=== PATIENT | female | born 1945 | race Caucasian/White ===

== ENCOUNTER 2017-12-16 06:15 | Inpatient (IN) | payer MEDICARE, MEDICAID ==
[2017-12-10 14:03] LABS: BASOPHILS # (AUTO) 0.1 X10'3 (0-0.2); BASOPHILS % (AUTO) 0.7 % (0-1); EOSINOPHILS # (AUTO) 0.2 X10'3 (0-0.9); EOSINOPHILS % (AUTO) 2.6 % (0-6); LYMPHOCYTES # (AUTO) 2.8 X10'3 (1.1-4.8); LYMPHOCYTES % (AUTO) 32.2 % (21-51); MEAN CORPUSCULAR HGB CONC 34.3 % (33.0-36.5); MEAN CORPUSCULAR VOLUME 87.7 FL (78-98); MEAN PLATELET VOLUME 7.5 FL (7.4-10.4); MONOCYTES # (AUTO) 0.4 X10'3 (0-0.9); NEUTROPHILS # (AUTO) 5.3 X10'3 (1.8-7.7); NEUTROPHILS % (AUTO) 59.5 % (42-75); PRE OP HEMATOCRIT 42.5 % (35.0-45.0); PRE OP HEMOGLOBIN 14.6 g/dL (12.0-16.0); PRE OP PLATELET COUNT 242 X10'3 (140-440); RED BLOOD COUNT 4.85 X10'6 (4.20-5.60); RED CELL DISTRIBUTION WIDTH 13.7 % (11.5-14.5)
[2017-12-10 14:17] LABS: CLARITY,URINE Cloudy (Clear); COLOR,URINE Yellow (Yellow); GLUCOSE, URINE Negative (Neg); KETONES,URINE Negative (Neg); LEUKOCYTE ESTERASE ,URINE Large (Neg); NITRITES, URINE Negative (Neg); OCCULT BLOOD,URINE Negative (Neg); PH,URINE 6.5 (4.8-8.0); PROTEIN,URINE Negative (Neg)
[2017-12-10 14:19] LABS: UA COLLECTION TYPE CLN CATCH MIDSTREAM
[2017-12-10 14:19] LABS: ALBUMIN 3.8 G/DL (3.4-5.0); ALKALINE PHOSPHATASE 80 IU/L (46-116); BLOOD UREA NITROGEN 10 MG/DL (7-18); BUN/CREATININE RATIO 9.2 (6.6-38.0); CALCIUM 9.5 MG/DL (8.5-10.1); CHLORIDE 108 MMOL/L (99-107); CREATININE 1.09 MG/DL (0.40-0.90); PRE OP ALT 22 U/L (30-65); PRE OP ANION GAP 8 (8-16); PRE OP AST 18 U/L (10-37); PRE OP BILIRUB, TOTAL 0.6 MG/DL (0.0-1.0); PRE OP GLUCOSE 93 MG/DL (70-104); PRE OP POTASSIUM 4.1 MMOL/L (3.4-5.1); PRE OP SODIUM 144 MMOL/L (135-145); TOTAL CARBON DIOXIDE 27.7 MMOL/L (24-32); TOTAL PROTEIN 7.8 G/DL (6.4-8.2); eGFR 49 ML/MIN
[2017-12-10 14:33] LABS: HEMOGLOBIN A1C 5.9 % (4.5-6.2)
[2017-12-10 15:08] LABS: SQUAMOUS EPITHELIAL CELL,UR FEW /LPF (FEW)
[2017-12-10 15:09] LABS: BACTERIA,URINE 3+ /HPF (Neg); RBC,URINE 0-2 /HPF (0-2); WBC CLUMPS,URINE MODERATE /HPF (NEGATIVE); WBC,URINE 20-30 /HPF (0-4)
[~2017-12-16] VITALS: Ht 165.1 cm; Wt 105.4 kg
[2017-12-16] VITALS (22 sets, daily range): BP systolic 90–160; BP diastolic 16–99
[~2017-12-16 06:15] MED LIST: CALC1TAB77 PO; GABA-532 PO; IBUP-1985 PO; LIDOcaine 1% (10mg/ml) 2ml vial ONE; OMEP-50 PO; acetaminophen 325mg tablet PO ONE; ceFAZolin 2gm in dextrose, iso 100 ML IV ONE; famotidine 20mg tablet PO ONE; gabapentin 300mg capsule PO ONE; metoclopramide 5 mg/ml inj IV ONE; oxyCODONE SR 10mg (sust. release) tab PO ONE; ringers solution, lacted 1,000 ML IV SCH; tranexamic acid inj. 1,000 MG in normal saline 100ml IV soln 90 ML IV ONE; vancomycin inj 1,500 MG in normal saline 300ml IV soln IV ONE
[2017-12-16] MEDS ORDERED: ketorolac trometh. 30mg/ml inj. ONE (07:40)
[2017-12-16] MEDS ORDERED: vancomycin 1,000mg inj ONE (07:41)
[2017-12-16] MEDS ORDERED: ROPIVAcaine 0.5% (5mg/ml) 30ml vial ONE ×2 (07:41→08:16)
[2017-12-16] MEDS ORDERED: ceFAZolin 1000mg inj ONE (07:41)
[2017-12-16] MEDS ORDERED: morphine /PF 1mg/ml 10ml inj. ONE (08:00)
[2017-12-16] MEDS ORDERED: sevoflurane 250ml liquid IH ONE (08:10)
[2017-12-16] MEDS ORDERED: cloNIDine hcl/PF 100mcg/ml inj ONE (08:11)
[2017-12-16] MEDS ORDERED: fentaNYL /PF 50mcg/ml 5ml ampule ONE (08:13)
[2017-12-16] MEDS ORDERED: MIDAZolam 5mg/5ml vial ONE (08:13)
[2017-12-16] MEDS ORDERED: ringers solution, lacted 1,000 ML IV SCH (09:26)
[2017-12-16] MEDS ORDERED: proCHLORperazine 10 MG/2 ml inj IV PRN (09:30)
[2017-12-16] MEDS ORDERED: meperidine/PF 50mg/ml syringe IV PRN ×3 (09:30)
[2017-12-16] MEDS ORDERED: morphine 4 MG/ML inj SYRINge IV PRN ×2 (09:30)
[2017-12-16] MEDS ORDERED: ondansetron/PF 4mg/2ml inj IV PRN ×2 (09:30→12:10)
[2017-12-16] MEDS ORDERED: magnesium hydroxide 30ml (MOM) UD suspension PO PRN (12:10)
[2017-12-16] MEDS ORDERED: bisacodyl 10mg suppository rectal RC PRN (12:10)
[2017-12-16] MEDS ORDERED: acetaminophen 325mg tablet PO PRN (12:10)
[2017-12-16] MEDS ORDERED: diphenhydrAMINE 25mg capsule PO PRN ×2 (12:10)
[2017-12-16] MEDS: acetaminophen 325mg tablet PO SCH ×2 (14:00→20:12)
[2017-12-16] MEDS: oxyCODONE IR 5mg (immed. release) tablet PO PRN (14:56)
[2017-12-16] MEDS: gabapentin 300mg capsule PO SCH ×2 (14:56→20:12)
[2017-12-16] MEDS: potassium cl 20mEq in 1/2 NS 1,000 ML IV SCH (14:58)
[2017-12-16] MEDS ORDERED: tranexamic acid inj. 1,000 MG in normal saline 100ml IV soln 100 ML IV ONE (15:00)
[2017-12-16] MEDS: ceFAZolin 1GM/D5W- ADD-VANTAGE 50 ML IV SCH (15:56)
[2017-12-16] MEDS ORDERED: vancomycin/NS 1 GM ADD-VANTAGE 250 ML IV SCH (20:00)
[2017-12-16] MEDS: sennosides 8.6mg tablet PO SCH (20:11)
[2017-12-16] MEDS: celeCOXIB 100mg capsule PO SCH (20:11)
[2017-12-17] MEDS: potassium cl 20mEq in 1/2 NS 1,000 ML IV SCH ×4 (01:22→19:36)
[2017-12-17] MEDS: ceFAZolin 1GM/D5W- ADD-VANTAGE 50 ML IV SCH (01:41)
[2017-12-17 02:00] VITALS: BP 112/49
[2017-12-17] MEDS: acetaminophen 325mg tablet PO SCH ×4 (02:00→19:56)
[2017-12-17] MEDS: oxyCODONE IR 5mg (immed. release) tablet PO PRN ×4 (05:16→19:58)
[2017-12-17 05:55] LABS: BASOPHILS % (AUTO) 0.3 % (0-1); EOSINOPHILS # (AUTO) 0.1 X10'3 (0-0.9); EOSINOPHILS % (AUTO) 1.4 % (0-6); HEMATOCRIT 32.1 % (35.0-45.0); HEMOGLOBIN 10.9 g/dl (12.0-16.0); LYMPHOCYTES # (AUTO) 1.8 X10'3 (1.1-4.8); LYMPHOCYTES % (AUTO) 19.3 % (21-51); MEAN CORPUSCULAR HEMOGLOBIN 29.8 PG (27.0-31.0); MEAN CORPUSCULAR HGB CONC 33.9 % (33.0-36.5); MEAN CORPUSCULAR VOLUME 87.8 FL (78-98); MEAN PLATELET VOLUME 7.7 FL (7.4-10.4); MONOCYTES # (AUTO) 0.6 X10'3 (0-0.9); NEUTROPHILS # (AUTO) 6.6 X10'3 (1.8-7.7); PLATELET COUNT 186 X10'3 (140-440); RED BLOOD COUNT 3.65 X10'6 (4.20-5.60); WHITE BLOOD COUNT 9.1 X10'3 (4.5-11.0)
[2017-12-17 06:16] LABS: ANION GAP 8 (8-16); CHLORIDE 105 MMOL/L (99-107); POTASSIUM 4.3 MMOL/L (3.5-5.1); SODIUM 138 MMOL/L (135-145); TOTAL CARBON DIOXIDE 24.9 MMOL/L (24-32)
[2017-12-17 06:41] VITALS: BP 118/60
[2017-12-17] MEDS: enoxaparin 40mg/0.4ml syringe SQ SCH (07:43)
[2017-12-17] MEDS: celeCOXIB 100mg capsule PO SCH ×2 (07:44→19:55)
[2017-12-17] MEDS: calcium carbonate/vitamin D3 tablet PO SCH ×2 (07:46→16:58)
[2017-12-17] MEDS: pantoprazole 40mg Tablet.DR PO SCH (07:46)
[2017-12-17 10:38] VITALS: BP 94/51
[2017-12-17 18:00] VITALS: BP 115/46
[2017-12-17] MEDS ORDERED: NUT.TX.GLUC.INTOLER,LAC-FR,REG (BOOST GLUCOSE CONTROL) 237 ML PO SCH (18:00)
[2017-12-17] MEDS: gabapentin 300mg capsule PO SCH (20:08)
[2017-12-17] MEDS: sennosides 8.6mg tablet PO SCH (20:09)
[2017-12-17 22:00] VITALS: BP 167/77
[2017-12-18] MEDS: oxyCODONE IR 5mg (immed. release) tablet PO PRN ×5 (01:22→23:39)
[2017-12-18] MEDS: acetaminophen 325mg tablet PO SCH ×2 (01:22→07:34)
[2017-12-18 01:57] VITALS: BP 167/77
[2017-12-18] MEDS: potassium cl 20mEq in 1/2 NS 1,000 ML IV SCH (04:09)
[2017-12-18 06:00] VITALS: BP 117/59
[2017-12-18 06:22] LABS: BASOPHILS % (AUTO) 0.4 % (0-1); EOSINOPHILS # (AUTO) 0.3 X10'3 (0-0.9); EOSINOPHILS % (AUTO) 3.9 % (0-6); HEMATOCRIT 30.5 % (35.0-45.0); HEMOGLOBIN 10.3 g/dl (12.0-16.0); LYMPHOCYTES % (AUTO) 29.2 % (21-51); MEAN CORPUSCULAR HEMOGLOBIN 29.7 PG (27.0-31.0); MEAN CORPUSCULAR HGB CONC 33.8 % (33.0-36.5); MEAN CORPUSCULAR VOLUME 87.8 FL (78-98); MEAN PLATELET VOLUME 7.9 FL (7.4-10.4); MONOCYTES # (AUTO) 0.6 X10'3 (0-0.9); MONOCYTES % (AUTO) 9.1 % (2-12); NEUTROPHILS % (AUTO) 57.4 % (42-75); PLATELET COUNT 154 X10'3 (140-440); RED BLOOD COUNT 3.47 X10'6 (4.20-5.60); RED CELL DISTRIBUTION WIDTH 13.1 % (11.5-14.5); WHITE BLOOD COUNT 6.9 X10'3 (4.5-11.0)
[2017-12-18] MEDS: calcium carbonate/vitamin D3 tablet PO SCH ×2 (07:33→17:48)
[2017-12-18] MEDS: celeCOXIB 100mg capsule PO SCH ×2 (07:33→19:50)
[2017-12-18] MEDS: pantoprazole 40mg Tablet.DR PO SCH (07:34)
[2017-12-18] MEDS: enoxaparin 40mg/0.4ml syringe SQ SCH (07:35)
[2017-12-18 10:00] VITALS: BP 107/56
[2017-12-18] MEDS ORDERED: acetaminophen 325mg tablet PO PRN (12:10)
[2017-12-18 18:48] VITALS: BP 138/70
[2017-12-18] MEDS: gabapentin 300mg capsule PO SCH (19:50)
[2017-12-18] MEDS: sennosides 8.6mg tablet PO SCH (19:52)
[2017-12-18 23:52] VITALS: BP 133/69
[2017-12-19 05:00] VITALS: BP 130/66
[2017-12-19] MEDS: oxyCODONE IR 5mg (immed. release) tablet PO PRN ×2 (05:35→13:35)
[2017-12-19 06:24] LABS: BASOPHILS % (AUTO) 0.5 % (0-1); EOSINOPHILS # (AUTO) 0.3 X10'3 (0-0.9); EOSINOPHILS % (AUTO) 3.5 % (0-6); HEMATOCRIT 31.5 % (35.0-45.0); HEMOGLOBIN 10.8 g/dl (12.0-16.0); LYMPHOCYTES # (AUTO) 2.4 X10'3 (1.1-4.8); LYMPHOCYTES % (AUTO) 31.6 % (21-51); MEAN CORPUSCULAR HEMOGLOBIN 29.8 PG (27.0-31.0); MEAN CORPUSCULAR HGB CONC 34.1 % (33.0-36.5); MEAN CORPUSCULAR VOLUME 87.4 FL (78-98); MEAN PLATELET VOLUME 7.9 FL (7.4-10.4); MONOCYTES # (AUTO) 0.6 X10'3 (0-0.9); MONOCYTES % (AUTO) 8.4 % (2-12); NEUTROPHILS # (AUTO) 4.3 X10'3 (1.8-7.7); PLATELET COUNT 190 X10'3 (140-440); RED CELL DISTRIBUTION WIDTH 13.4 % (11.5-14.5); WHITE BLOOD COUNT 7.7 X10'3 (4.5-11.0)
[2017-12-19] MEDS: calcium carbonate/vitamin D3 tablet PO SCH (07:06)
[2017-12-19] MEDS: enoxaparin 40mg/0.4ml syringe SQ SCH (07:06)
[2017-12-19] MEDS: celeCOXIB 100mg capsule PO SCH (07:06)
[2017-12-19] MEDS: pantoprazole 40mg Tablet.DR PO SCH (07:06)
[2017-12-19 10:00] VITALS: BP 116/61
== END 2017-12-19 15:00 | disposition home or self-care (01) | DRG 470 ==
LOC: PAS IN 06:15 → EDSTATUS 08:30 → ORTHO 4S 14:40
PROVIDERS: ADMIT Orthopaedic Surgery; ATTEND Orthopaedic Surgery
PROC: 3E0T3BZ Introduction of Anesthetic Agent into Peripheral Nerves and Plexi, Percutaneous Approach (ICD-10-PCS; 2017-12-16)
PROC: 0SRD069 Replacement of Left Knee Joint with Oxidized Zirconium on Polyethylene Synthetic Substitute, Cemented, Open Approach (ICD-10-PCS; principal; 2017-12-16 08:10)
DX: M17.12 Unilateral primary osteoarthritis, left knee (principal); D62 Acute posthemorrhagic anemia; E11.9 Type 2 diabetes mellitus without complications; E66.9 Obesity, unspecified; K21.9 Gastro-esophageal reflux disease without esophagitis; Z79.899 Other long term (current) drug therapy; Z88.5 Allergy status to narcotic agent; Z87.891 Personal history of nicotine dependence; Z68.38 Body mass index [BMI] 38.0-38.9, adult
CPT/HCPCS: 36415; 73552; 73560; 80051; 80053; 81001; 82948; 83036; 85025; 87070; 87077; 87088; 87186; 97110; 97116; 97161; A6449; A6455; A7000; C1713; C1758; C9250; J0690; J0735; J1650; J1885; J2250; J2274; J2405; J2765; J2795; J3010; J3370; J3490; J7030; J7120; Q0163

== ENCOUNTER 2018-02-07 03:42 | Inpatient (IN) | payer MEDICARE, MEDICAID ==
[~2018-02-07] VITALS: Ht 167.6 cm; Wt 98.6 kg
[2018-02-07] VITALS (19 sets, daily range): BP systolic 91–173; BP diastolic 54–94
[~2018-02-07 03:42] MED LIST changes: -LIDOcaine 1% (10mg/ml) 2ml vial ONE; -acetaminophen 325mg tablet PO ONE; -ceFAZolin 2gm in dextrose, iso 100 ML IV ONE; -famotidine 20mg tablet PO ONE; -gabapentin 300mg capsule PO ONE; -metoclopramide 5 mg/ml inj IV ONE; -oxyCODONE SR 10mg (sust. release) tab PO ONE; -ringers solution, lacted 1,000 ML IV SCH; -tranexamic acid inj. 1,000 MG in normal saline 100ml IV soln 90 ML IV ONE; -vancomycin inj 1,500 MG in normal saline 300ml IV soln IV ONE
[2018-02-07] MEDS ORDERED: ondansetron/PF 4mg/2ml inj IV ONE (03:55)
[2018-02-07] MEDS ORDERED: morphine 4 MG/ML inj SYRINge IV ONE ×2 (03:55→05:10)
[2018-02-07 05:26] LABS: CLARITY,URINE CLEAR (Clear); COLOR,URINE YELLOW (Yellow); GLUCOSE, URINE NEGATIVE (Neg); KETONES,URINE NEGATIVE (Neg); LEUKOCYTE ESTERASE ,URINE NEGATIVE (Neg); NITRITES, URINE NEGATIVE (Neg); OCCULT BLOOD,URINE NEGATIVE (Neg); PROTEIN,URINE NEGATIVE (Neg); UROBILINOGEN,URINE 0.2 E.U/dL (0.2-1.0)
[2018-02-07 05:34] LABS: UA COLLECTION TYPE FOLEY CATH
[2018-02-07 05:41] LABS: BASOPHILS # (AUTO) 0.1 X10'3 (0-0.2); BASOPHILS % (AUTO) 0.7 % (0-1); EOSINOPHILS # (AUTO) 0.2 X10'3 (0-0.9); EOSINOPHILS % (AUTO) 2.3 % (0-6); HEMATOCRIT 38.5 % (35.0-45.0); HEMOGLOBIN 12.7 g/dl (12.0-16.0); LYMPHOCYTES # (AUTO) 2.4 X10'3 (1.1-4.8); LYMPHOCYTES % (AUTO) 26.7 % (21-51); MEAN CORPUSCULAR HEMOGLOBIN 28.5 PG (27.0-31.0); MEAN CORPUSCULAR HGB CONC 32.9 % (33.0-36.5); MEAN CORPUSCULAR VOLUME 86.7 FL (78-98); MEAN PLATELET VOLUME 7.3 FL (7.4-10.4); MONOCYTES # (AUTO) 0.5 X10'3 (0-0.9); MONOCYTES % (AUTO) 5.8 % (2-12); NEUTROPHILS # (AUTO) 5.9 X10'3 (1.8-7.7); NEUTROPHILS % (AUTO) 64.5 % (42-75); PLATELET COUNT 295 X10'3 (140-440); RED BLOOD COUNT 4.45 X10'6 (4.20-5.60); RED CELL DISTRIBUTION WIDTH 14.4 % (11.5-14.5); WHITE BLOOD COUNT 9.1 X10'3 (4.5-11.0)
[2018-02-07 05:50] LABS: PARTIAL THROMBOPLASTIN TIME 25 SECONDS (22-32); PROTHROMBIN TIME 10.2 SECONDS (9.0-12.0)
[2018-02-07 05:57] LABS: ALANINE AMINOTRANSFERASE 9 U/L (12-78); ALBUMIN 3.3 G/DL (3.4-5.0); ALBUMIN/GLOBULIN RATIO 0.9 (1.1-1.5); ALKALINE PHOSPHATASE 108 IU/L (46-116); ANION GAP 10 (8-16); ASPARTATE AMINO TRANSFERASE 12 U/L (10-37); BILIRUBIN,TOTAL 0.4 MG/DL (0.1-1.0); BLOOD UREA NITROGEN 13 MG/DL (7-18); BUN/CREATININE RATIO 11.7 (6.6-38.0); CALCIUM 9.3 MG/DL (8.5-10.1); CHLORIDE 105 MMOL/L (99-107); CREATININE 1.11 MG/DL (0.40-0.90); GLUCOSE 110 MG/DL (70-104); POTASSIUM 3.9 MMOL/L (3.5-5.1); SODIUM 140 MMOL/L (135-145); TOTAL CARBON DIOXIDE 25.4 MMOL/L (24-32); TOTAL PROTEIN 7.1 G/DL (6.4-8.2); eGFR 48 ML/MIN
[2018-02-07] MEDS ORDERED: magnesium 2GM in 50ml NS 50 ML IV PRN (06:05)
[2018-02-07] MEDS ORDERED: magnesium Cl slow-release 64mg tablet PO PRN (06:05)
[2018-02-07] MEDS ORDERED: ondansetron/PF 4mg/2ml inj IV PRN ×2 (06:05→09:30)
[2018-02-07] MEDS ORDERED: mag hydrox/Alum hydrox/simeth 30ml oral suspension PO PRN (06:05)
[2018-02-07] MEDS ORDERED: magnesium hydroxide 30ml (MOM) UD suspension PO PRN (06:05)
[2018-02-07] MEDS ORDERED: HYDROcodone/acetaminophen 10/325mg tab PO PRN (06:05)
[2018-02-07] MEDS ORDERED: potassium Cl 40MEQ/NS 500ml 500 ML IV PRN ×2 (06:05)
[2018-02-07] MEDS ORDERED: magnesium 4gm in 100ml NS 100 ML IV PRN (06:05)
[2018-02-07] MEDS ORDERED: HYDROcodone/acetaminophen 5mg/325mg tablet PO PRN (06:05)
[2018-02-07] MEDS ORDERED: potassium Cl 20 mEq SR tablet PO PRN ×2 (06:05)
[2018-02-07] MEDS ORDERED: acetaminophen 325mg tablet PO PRN ×2 (06:05)
[2018-02-07] MEDS: potassium Cl 20mEq in NS 1,000 ML IV SCH ×2 (06:31→18:19)
[2018-02-07] MEDS: enoxaparin 40mg/0.4ml syringe SUBCUT SCH (08:00)
[2018-02-07] MEDS: K and/or MAG REPLACEMENT MC SCH (08:00)
[2018-02-07] MEDS ORDERED: ceFAZolin 1000mg inj ONE ×3 (08:37→09:33)
[2018-02-07] MEDS ORDERED: ePHEDrine 50MG/ML INJ. ONE (08:52)
[2018-02-07] MEDS ORDERED: desflurane 240ml liquid inh. IH ONE (08:52)
[2018-02-07] MEDS ORDERED: albumin (Human) 5% 250 ML IV solution IV ONE (08:52)
[2018-02-07] MEDS ORDERED: fentaNYL/PF 50MCG/1 ML 2ML syringe ONE (09:02)
[2018-02-07] MEDS ORDERED: midazolam 2 mg/2 ml injection ONE (09:02)
[2018-02-07] MEDS ORDERED: LIDOcaine 2% 5ml jelly ONE (09:06)
[2018-02-07] MEDS ORDERED: ringers solution, lacted 1,000 ML IV SCH (09:26)
[2018-02-07] MEDS ORDERED: meperidine/PF 25mg/ml syringe IV PRN ×3 (09:30)
[2018-02-07] MEDS ORDERED: proCHLORperazine 10 MG/2 ml inj IV PRN (09:30)
[2018-02-07] MEDS ORDERED: acetaminophen 1,000mg/100ml IV 100 ML IV PRN (09:30)
[2018-02-07] MEDS ORDERED: morphine 4 MG/ML inj SYRINge IV PRN ×4 (09:30→20:05)
[2018-02-07] MEDS ORDERED: propofol inj 20 ML IV ONE ×2 (09:33→11:35)
[2018-02-07] MEDS ORDERED: rocuronium 10mg/ml inj IV ONE (09:33)
[2018-02-07] MEDS ORDERED: vancomycin 1,000mg inj ONE (09:33)
[2018-02-07] MEDS ORDERED: LIDOcaine 2% (20mg/ml) 5ml vial ONE (09:33)
[2018-02-07] MEDS ORDERED: morphine 10mg/ml inj. ONE (10:03)
[2018-02-07 12:40] LABS: ISTAT CREATININE 1.1 mg/dL (0.6-1.1); ISTAT HGB 12.6 g/dl (12.0-16.0); ISTAT IONIZED CALCIUM 1.24 mmol/L (1.03-1.32); POC BUN/CREATININE RATIO 10.9 (6.6-38.0)
[2018-02-07] MEDS ORDERED: scopolamine 1.5mg patch.TD72 TD ONE (14:05)
[2018-02-07] MEDS ORDERED: ibuprofen 200mg tablet PO PRN (14:45)
[2018-02-07] MEDS ORDERED: oxyCODONE IR 5mg (immed. release) tablet PO PRN (20:05)
[2018-02-07] MEDS: gabapentin 300mg capsule PO SCH (20:30)
[2018-02-07] MEDS: calcium carbonate/vitamin D3 tablet PO SCH (20:30)
[2018-02-08] MEDS: oxyCODONE IR 5mg (immed. release) tablet PO PRN ×4 (00:19→15:47)
[2018-02-08 05:00] VITALS: BP 121/61
[2018-02-08 06:00] LABS: BASOPHILS % (AUTO) 0.4 % (0-1); EOSINOPHILS # (AUTO) 0.1 X10'3 (0-0.9); EOSINOPHILS % (AUTO) 1.3 % (0-6); HEMOGLOBIN 9.8 g/dl (12.0-16.0); LYMPHOCYTES # (AUTO) 2.4 X10'3 (1.1-4.8); MEAN CORPUSCULAR HEMOGLOBIN 28.9 PG (27.0-31.0); MEAN CORPUSCULAR HGB CONC 33.7 % (33.0-36.5); MEAN CORPUSCULAR VOLUME 85.7 FL (78-98); MEAN PLATELET VOLUME 7.2 FL (7.4-10.4); MONOCYTES # (AUTO) 0.7 X10'3 (0-0.9); NEUTROPHILS # (AUTO) 4.1 X10'3 (1.8-7.7); NEUTROPHILS % (AUTO) 55.3 % (42-75); PLATELET COUNT 238 X10'3 (140-440); RED BLOOD COUNT 3.39 X10'6 (4.20-5.60); WHITE BLOOD COUNT 7.3 X10'3 (4.5-11.0)
[2018-02-08 06:20] LABS: ALANINE AMINOTRANSFERASE 9 U/L (12-78); ALBUMIN 2.7 G/DL (3.4-5.0); ALBUMIN/GLOBULIN RATIO 0.8 (1.1-1.5); ALKALINE PHOSPHATASE 81 IU/L (46-116); ANION GAP 8 (8-16); ASPARTATE AMINO TRANSFERASE 20 U/L (10-37); BILIRUBIN,TOTAL 0.6 MG/DL (0.1-1.0); BLOOD UREA NITROGEN 16 MG/DL (7-18); BUN/CREATININE RATIO 13.6 (6.6-38.0); CALCIUM 8.4 MG/DL (8.5-10.1); CHLORIDE 107 MMOL/L (99-107); CREATININE 1.18 MG/DL (0.40-0.90); GLUCOSE 114 MG/DL (70-104); MAGNESIUM 1.9 MG/DL (1.5-2.4); POTASSIUM 4.5 MMOL/L (3.5-5.1); SODIUM 139 MMOL/L (135-145); TOTAL CARBON DIOXIDE 24.2 MMOL/L (24-32); TOTAL PROTEIN 5.9 G/DL (6.4-8.2); eGFR 45 ML/MIN
[2018-02-08] MEDS: K and/or MAG REPLACEMENT MC SCH (07:48)
[2018-02-08] MEDS: potassium Cl 20mEq in NS 1,000 ML IV SCH ×2 (08:09→12:02)
[2018-02-08] MEDS: pantoprazole 40mg Tablet.DR PO SCH (08:09)
[2018-02-08] MEDS: calcium carbonate/vitamin D3 tablet PO SCH ×2 (08:09→19:32)
[2018-02-08] MEDS: enoxaparin 40mg/0.4ml syringe SUBCUT SCH (08:10)
[2018-02-08 10:00] VITALS: BP 125/72
[2018-02-08] MEDS ORDERED: ceFAZolin inj. 1,000 MG in normal saline 100ml IV soln 100 ML IV SCH (16:00)
[2018-02-08] MEDS ORDERED: ceFAZolin 1GM/D5W- ADD-VANTAGE 50 ML IV SCH (16:00)
[2018-02-08 18:00] VITALS: BP 132/79
[2018-02-08] MEDS: carvedilol 6.25mg tablet PO SCH (19:32)
[2018-02-08] MEDS: gabapentin 300mg capsule PO SCH (19:32)
[2018-02-08] MEDS: vancomycin/NS 1 GM ADD-VANTAGE 250 ML IV SCH (19:33)
[2018-02-08 22:00] VITALS: BP 102/68
[2018-02-08] MEDS: ceFAZolin 1GM/D5W- ADD-VANTAGE 50 ML IV SCH (23:45)
[2018-02-09 05:00] VITALS: BP 106/58
[2018-02-09] MEDS: oxyCODONE IR 5mg (immed. release) tablet PO PRN ×4 (05:16→23:31)
[2018-02-09] MEDS: potassium Cl 20mEq in NS 1,000 ML IV SCH ×2 (06:40→09:13)
[2018-02-09 07:08] LABS: BASOPHILS % (AUTO) 0.4 % (0-1); EOSINOPHILS # (AUTO) 0.2 X10'3 (0-0.9); EOSINOPHILS % (AUTO) 2.5 % (0-6); HEMATOCRIT 24.2 % (35.0-45.0); LYMPHOCYTES # (AUTO) 1.8 X10'3 (1.1-4.8); LYMPHOCYTES % (AUTO) 24.3 % (21-51); MEAN CORPUSCULAR HEMOGLOBIN 28.5 PG (27.0-31.0); MEAN CORPUSCULAR HGB CONC 33.2 % (33.0-36.5); MEAN CORPUSCULAR VOLUME 85.8 FL (78-98); MEAN PLATELET VOLUME 7.6 FL (7.4-10.4); MONOCYTES # (AUTO) 0.8 X10'3 (0-0.9); MONOCYTES % (AUTO) 10.5 % (2-12); NEUTROPHILS # (AUTO) 4.7 X10'3 (1.8-7.7); NEUTROPHILS % (AUTO) 62.3 % (42-75); PLATELET COUNT 180 X10'3 (140-440); RED BLOOD COUNT 2.82 X10'6 (4.20-5.60); RED CELL DISTRIBUTION WIDTH 13.9 % (11.5-14.5); WHITE BLOOD COUNT 7.6 X10'3 (4.5-11.0)
[2018-02-09 07:31] LABS: ALANINE AMINOTRANSFERASE 11 U/L (12-78); ALBUMIN 2.3 G/DL (3.4-5.0); ALBUMIN/GLOBULIN RATIO 0.7 (1.1-1.5); ALKALINE PHOSPHATASE 64 IU/L (46-116); ANION GAP 6 (8-16); ASPARTATE AMINO TRANSFERASE 34 U/L (10-37); BILIRUBIN,TOTAL 0.5 MG/DL (0.1-1.0); BLOOD UREA NITROGEN 18 MG/DL (7-18); BUN/CREATININE RATIO 19.4 (6.6-38.0); CALCIUM 8.4 MG/DL (8.5-10.1); CHLORIDE 104 MMOL/L (99-107); CREATININE 0.93 MG/DL (0.40-0.90); GLUCOSE 120 MG/DL (70-104); MAGNESIUM 1.7 MG/DL (1.5-2.4); POTASSIUM 4.5 MMOL/L (3.5-5.1); SODIUM 136 MMOL/L (135-145); TOTAL CARBON DIOXIDE 25.9 MMOL/L (24-32); TOTAL PROTEIN 5.5 G/DL (6.4-8.2); eGFR 59 ML/MIN
[2018-02-09] MEDS: K and/or MAG REPLACEMENT MC SCH (08:00)
[2018-02-09] MEDS: enoxaparin 40mg/0.4ml syringe SUBCUT SCH (09:14)
[2018-02-09] MEDS: calcium carbonate/vitamin D3 tablet PO SCH ×2 (09:14→19:46)
[2018-02-09] MEDS: carvedilol 6.25mg tablet PO SCH ×2 (09:14→19:46)
[2018-02-09] MEDS: pantoprazole 40mg Tablet.DR PO SCH (09:14)
[2018-02-09] MEDS: gabapentin 300mg capsule PO SCH (09:14)
[2018-02-09] MEDS: ceFAZolin 1GM/D5W- ADD-VANTAGE 50 ML IV SCH (09:16)
[2018-02-09 10:00] VITALS: BP 101/54
[2018-02-09] MEDS: vancomycin/NS 1 GM ADD-VANTAGE 250 ML IV SCH (10:49)
[2018-02-09 18:00] VITALS: BP 109/47
[2018-02-10 05:54] LABS: BASOPHILS % (AUTO) 0.5 % (0-1); EOSINOPHILS # (AUTO) 0.3 X10'3 (0-0.9); EOSINOPHILS % (AUTO) 4.1 % (0-6); HEMATOCRIT 22.8 % (35.0-45.0); HEMOGLOBIN 7.7 g/dl (12.0-16.0); LYMPHOCYTES # (AUTO) 1.9 X10'3 (1.1-4.8); LYMPHOCYTES % (AUTO) 25.3 % (21-51); MEAN CORPUSCULAR HEMOGLOBIN 28.6 PG (27.0-31.0); MEAN CORPUSCULAR HGB CONC 33.8 % (33.0-36.5); MEAN CORPUSCULAR VOLUME 84.7 FL (78-98); MEAN PLATELET VOLUME 7.6 FL (7.4-10.4); MONOCYTES # (AUTO) 0.6 X10'3 (0-0.9); MONOCYTES % (AUTO) 8.7 % (2-12); NEUTROPHILS # (AUTO) 4.5 X10'3 (1.8-7.7); NEUTROPHILS % (AUTO) 61.4 % (42-75); PLATELET COUNT 182 X10'3 (140-440); RED BLOOD COUNT 2.69 X10'6 (4.20-5.60); RED CELL DISTRIBUTION WIDTH 13.8 % (11.5-14.5); WHITE BLOOD COUNT 7.4 X10'3 (4.5-11.0)
[2018-02-10 06:05] LABS: ALANINE AMINOTRANSFERASE 9 U/L (12-78); ALBUMIN 2.3 G/DL (3.4-5.0); ALBUMIN/GLOBULIN RATIO 0.7 (1.1-1.5); ALKALINE PHOSPHATASE 66 IU/L (46-116); ANION GAP 7 (8-16); ASPARTATE AMINO TRANSFERASE 24 U/L (10-37); BILIRUBIN,TOTAL 0.4 MG/DL (0.1-1.0); BLOOD UREA NITROGEN 19 MG/DL (7-18); BUN/CREATININE RATIO 20.2 (6.6-38.0); CALCIUM 8.5 MG/DL (8.5-10.1); CHLORIDE 101 MMOL/L (99-107); CREATININE 0.94 MG/DL (0.40-0.90); GLUCOSE 105 MG/DL (70-104); MAGNESIUM 1.9 MG/DL (1.5-2.4); PHOSPHORUS 2.8 MG/DL (2.3-4.5); POTASSIUM 4.2 MMOL/L (3.5-5.1); SODIUM 133 MMOL/L (135-145); TOTAL CARBON DIOXIDE 24.9 MMOL/L (24-32); TOTAL PROTEIN 5.8 G/DL (6.4-8.2); eGFR 59 ML/MIN
[2018-02-10 06:45] VITALS: BP 126/58
[2018-02-10] MEDS: K and/or MAG REPLACEMENT MC SCH (08:00)
[2018-02-10] MEDS: potassium Cl 20mEq in NS 1,000 ML IV SCH ×2 (08:02→08:38)
[2018-02-10] MEDS: carvedilol 6.25mg tablet PO SCH (08:43)
[2018-02-10] MEDS: calcium carbonate/vitamin D3 tablet PO SCH (08:43)
[2018-02-10] MEDS: pantoprazole 40mg Tablet.DR PO SCH (08:43)
[2018-02-10] MEDS: enoxaparin 40mg/0.4ml syringe SUBCUT SCH (08:44)
[2018-02-10] MEDS: oxyCODONE IR 5mg (immed. release) tablet PO PRN ×2 (08:58→14:16)
== END 2018-02-10 15:30 | DRG 481 ==
LOC: ER 03:42 → ED HOLD 06:13 → ORTHO 4S 11:30
PROVIDERS: ADMIT Internal Medicine; ATTEND Family Medicine
PROC: 0QU Lower Bones, Supplement (ICD-10-PCS; 2018-02-07)
PROC: 0QS904Z Reposition Left Femoral Shaft with Internal Fixation Device, Open Approach (ICD-10-PCS; principal; 2018-02-07 09:02)
DX: S72.302A Unspecified fracture of shaft of left femur, initial encounter for closed fracture (principal); M97.02XA Periprosthetic fracture around internal prosthetic left hip joint, initial encounter; I95.9 Hypotension, unspecified; E11.40 Type 2 diabetes mellitus with diabetic neuropathy, unspecified; E66.01 Morbid (severe) obesity due to excess calories; D62 Acute posthemorrhagic anemia; Z68.35 Body mass index [BMI] 35.0-35.9, adult; K21.9 Gastro-esophageal reflux disease without esophagitis; Z96.652 Presence of left artificial knee joint; R00.0 Tachycardia, unspecified; W18.39XA Other fall on same level, initial encounter; I10 Essential (primary) hypertension; Z90.710 Acquired absence of both cervix and uterus; Z79.899 Other long term (current) drug therapy; Z79.01 Long term (current) use of anticoagulants; Z79.82 Long term (current) use of aspirin; Z88.6 Allergy status to analgesic agent; Z88.8 Allergy status to other drugs, medicaments and biological substances; Z90.49 Acquired absence of other specified parts of digestive tract; Y93.89 Activity, other specified; Y92.89 Other specified places as the place of occurrence of the external cause; Y99.8 Other external cause status
CPT/HCPCS: 36415; 71045; 73552; 76001; 80047; 80053; 81003; 82948; 83036; 83605; 83735; 84100; 84484; 85025; 85610; 85730; 86885; 86900; 86901; 87040; 87070; 87088; 93005; 96374; 96375; 96376; 97110; 97162; 97530; 99285; A6258; A6402; A6449; A7000; C1713; C1758; J0131; J0690; J1650; J2001; J2175; J2250; J2270; J2405; J2704; J3010; J3370; J7030; J7120; P9045

== ENCOUNTER 2022-06-14 03:49 | Inpatient (IN) | payer MEDICARE, MEDICAID ==
[~2022-06-14] VITALS: Ht 167.6 cm; Wt 81.8 kg
[~2022-06-14 03:49] MED LIST changes: +CALC-741 PO; -CALC1TAB77 PO; -OMEP-50 PO; +OMEP20CA16 PO
[2022-06-14] MEDS ORDERED: ringers solution, lactated 1000ml IV soln IV ONE (04:30)
[2022-06-14 05:43] LABS: BASOPHILS % (AUTO) 0.1 % (0-1); EOSINOPHILS % (AUTO) 0.2 % (0-6); HEMATOCRIT 35.9 % (35.0-45.0); HEMOGLOBIN 11.9 g/dl (12.0-16.0); LYMPHOCYTES # (AUTO) 0.3 X10'3 (1.1-4.8); LYMPHOCYTES % (AUTO) 2.3 % (21-51); MEAN CORPUSCULAR HEMOGLOBIN 28.5 PG (27.0-31.0); MEAN CORPUSCULAR HGB CONC 33.2 g/dL (33.0-36.5); MEAN CORPUSCULAR VOLUME 85.7 FL (78-98); MEAN PLATELET VOLUME 8.9 FL (7.4-10.4); MONOCYTES # (AUTO) 0.3 X10'3 (0-0.9); MONOCYTES % (AUTO) 2.6 % (2-12); NEUTROPHILS # (AUTO) 12.1 X10'3 (1.8-7.7); NEUTROPHILS % (AUTO) 94.8 % (42-75); PLATELET COUNT 146 X10'3 (140-440); RED BLOOD COUNT 4.19 X10'6 (4.20-5.60); RED CELL DISTRIBUTION WIDTH 15.3 % (11.5-14.5); WHITE BLOOD COUNT 12.8 X10'3 (4.5-11.0)
[2022-06-14 05:59] LABS: ALANINE AMINOTRANSFERASE 17 U/L (12-78); ALBUMIN 2.6 G/DL (3.4-5.0); ALBUMIN/GLOBULIN RATIO 0.8 (1.1-1.5); ALKALINE PHOSPHATASE 145 IU/L (46-116); ANION GAP 17 (8-16); ASPARTATE AMINO TRANSFERASE 21 U/L (10-37); BILIRUBIN,TOTAL 1.4 MG/DL (0.1-1.0); BLOOD UREA NITROGEN 43 MG/DL (7-18); CALCIUM 8.6 MG/DL (8.5-10.1); CHLORIDE 103 MMOL/L (99-107); CREATININE 2.86 MG/DL (0.40-0.90); GLUCOSE 108 MG/DL (70-104); POTASSIUM 3.2 MMOL/L (3.5-5.1); SODIUM 141 MMOL/L (135-145); TOTAL CARBON DIOXIDE 21.3 MMOL/L (24-32); TOTAL PROTEIN 5.9 G/DL (6.4-8.2); eGFR 16 ML/MIN
[2022-06-14] MEDS ORDERED: ringers solution, lacted 1,000 ML IV ONE (06:00)
[2022-06-14 06:02] LABS: D-DIMER 13.75 MG/L FEU (0-0.50)
[2022-06-14 06:36] LABS: ANISOCYTOSIS 1+; MICROCYTOSIS 1+; PLATELET ESTIMATE NORMAL; TOTAL CELLS COUNTED 100
[2022-06-14] MEDS ORDERED: CefTRIAXone/D5W-Rocephin 1gm 50 ML IV ONE (07:50)
[2022-06-14] MEDS ORDERED: azithromycin/NS 500mg/250ml 250 ML IV ONE (07:50)
--- NOTE | 2022-06-14 09:45 | NUR ---
JIMMY DAUGHTER [phone]
[2022-06-14] MEDS ORDERED: magnesium hydroxide 30ml (MOM) UD suspension PO PRN (14:25)
[2022-06-14] MEDS ORDERED: magnesium 4gm in 100ml NS 100 ML IV PRN (14:25)
[2022-06-14] MEDS: normal saline 1000ml 1,000 ML IV SCH (14:25)
[2022-06-14] MEDS ORDERED: magnesium Cl slow-release 64mg tablet PO PRN (14:25)
[2022-06-14] MEDS ORDERED: ondansetron/PF 4mg/2ml inj IV PRN (14:25)
[2022-06-14] MEDS ORDERED: POTASSIUM BICARB 20meq eff tab 20 MEQ TABLET.EFF PO PRN ×2 (14:25)
[2022-06-14] MEDS ORDERED: mag hydrox/Alum hydrox/simeth 30ml oral suspension PO PRN (14:25)
[2022-06-14] MEDS ORDERED: potassium CL 10mEq/100ml bag 100 ML IV PRN (14:25)
[2022-06-14] MEDS ORDERED: magnesium 2GM in 50ml NS 50 ML IV PRN (14:25)
[2022-06-14 14:37] LABS: MAGNESIUM 1.9 MG/DL (1.5-2.4); POTASSIUM 4.1 MMOL/L (3.5-5.1)
[2022-06-14] MEDS ORDERED: OXYB5TAB16 PO (17:20)
[2022-06-14] MEDS ORDERED: TRAZ-251 PO (17:20)
[2022-06-14] MEDS ORDERED: POLY1DRO2 OP (17:20)
[2022-06-14] MEDS ORDERED: NAPR-1170 PO (17:20)
[2022-06-14] MEDS ORDERED: ATOR20TA66 PO (17:20)
[2022-06-14] MEDS ORDERED: GABA-530 PO (17:20)
[2022-06-14] MEDS ORDERED: polyvinyl alcohol ophthalmic drops 15ml bottle EACHEYE PRN (18:00)
[2022-06-14] MEDS: calcium carbonate/vitamin D3 tablet PO SCH (19:20)
[2022-06-14] MEDS: acetaminophen 325mg tablet PO PRN (19:21)
[2022-06-14] MEDS: docusate sod 100mg capsule PO SCH (20:00)
[2022-06-14] MEDS: K and/or MAG REPLACEMENT MC SCH (20:00)
[2022-06-14] MEDS: traZODone 50mg tablet PO SCH (22:35)
[2022-06-14] MEDS: oxybutynin 5mg tablet PO SCH (22:36)
[2022-06-14] MEDS: atorvastatin 20mg tablet PO SCH (22:36)
[2022-06-14] MEDS: gabapentin 100mg capsule PO SCH (22:36)
[2022-06-15] MEDS: normal saline 1000ml 1,000 ML IV SCH ×3 (00:25→20:28)
[2022-06-15] MEDS: pantoprazole 40mg Tablet.DR PO SCH (07:07)
[2022-06-15] MEDS: azithromycin 250mg tablet PO SCH (07:07)
[2022-06-15] MEDS: gabapentin 100mg capsule PO SCH ×3 (07:08→20:26)
[2022-06-15] MEDS: K and/or MAG REPLACEMENT MC SCH ×2 (07:15→20:00)
[2022-06-15] MEDS: docusate sod 100mg capsule PO SCH ×2 (07:15→20:00)
[2022-06-15] MEDS: enoxaparin 40mg/0.4ml syringe SUBCUT SCH (07:23)
--- NOTE | 2022-06-15 07:41 | NUR ---
PT WAS INC OF URINE, A WICK WAS PROVIDED TO THE PT AND THEY APPEAR TO TOLERATE WELL. WILL CONTINUE TO ASSESS THE PT.
[2022-06-15] MEDS: calcium carbonate/vitamin D3 tablet PO SCH ×2 (07:46→17:55)
[2022-06-15] MEDS: CefTRIAXone 2gm/D5W 50ml BAG 50 ML IV SCH (07:49)
[2022-06-15 09:24] LABS: BASOPHILS % (AUTO) 0.2 % (0-1); EOSINOPHILS # (AUTO) 0.1 X10'3 (0-0.9); EOSINOPHILS % (AUTO) 1.3 % (0-6); HEMATOCRIT 33.4 % (35.0-45.0); HEMOGLOBIN 11.1 g/dl (12.0-16.0); LYMPHOCYTES # (AUTO) 0.6 X10'3 (1.1-4.8); LYMPHOCYTES % (AUTO) 5.9 % (21-51); MEAN CORPUSCULAR HEMOGLOBIN 28.3 PG (27.0-31.0); MEAN CORPUSCULAR HGB CONC 33.2 g/dL (33.0-36.5); MEAN CORPUSCULAR VOLUME 85.1 FL (78-98); MEAN PLATELET VOLUME 8.6 FL (7.4-10.4); MONOCYTES # (AUTO) 0.6 X10'3 (0-0.9); MONOCYTES % (AUTO) 5.3 % (2-12); NEUTROPHILS # (AUTO) 9.3 X10'3 (1.8-7.7); NEUTROPHILS % (AUTO) 87.3 % (42-75); PLATELET COUNT 132 X10'3 (140-440); RED BLOOD COUNT 3.93 X10'6 (4.20-5.60); RED CELL DISTRIBUTION WIDTH 15.1 % (11.5-14.5); WHITE BLOOD COUNT 10.6 X10'3 (4.5-11.0)
[2022-06-15 09:30] LABS: ALBUMIN 2.1 G/DL (3.4-5.0); ANION GAP 14 (8-16); BLOOD UREA NITROGEN 43 MG/DL (7-18); BUN/CREATININE RATIO 22.3 (6.6-38.0); CALCIUM 8.7 MG/DL (8.5-10.1); CHLORIDE 105 MMOL/L (99-107); CREATININE 1.93 MG/DL (0.40-0.90); GLUCOSE 92 MG/DL (70-104); MAGNESIUM 1.9 MG/DL (1.5-2.4); POTASSIUM 3.8 MMOL/L (3.5-5.1); SODIUM 142 MMOL/L (135-145); TOTAL CARBON DIOXIDE 22.6 MMOL/L (24-32); eGFR 25 ML/MIN
--- NOTE | 2022-06-15 10:53 | NUR ---
1053: daughter called for an update.
--- NOTE | 2022-06-15 13:23 | NUR ---
PATIENT PLACED ON HOSPITAL BED FOR COMFORT.
--- NOTE | 2022-06-15 18:04 | NUR ---
PATIENT IS COMPLAINING OF PAIN "ALL OVER HER BODY" AND WOULD LIKE MEDICATION FOR IT. MESSAGE SENT TO DR. RINCON FOR MEDICATION ORDER. PAGER ID: [phone] MESSAGE: ER BED #10 BRIDGES. PATIENT COMPLAINS OF BODY PAIN AND USUALLY TAKES NAPROXEN BID AT HOME FOR PAIN. CAN WE HAVE ORDER FOR SOMETHING FOR HER PAIN? THANKS, SALINAS RN [phone]
[2022-06-15] MEDS: traZODone 50mg tablet PO SCH (20:26)
[2022-06-15] MEDS: oxybutynin 5mg tablet PO SCH (20:26)
[2022-06-15] MEDS: atorvastatin 20mg tablet PO SCH (20:27)
[2022-06-16] VITALS (7 sets, daily range): BP systolic 112–152; BP diastolic 65–97
[2022-06-16 07:59] LABS: ALBUMIN 1.8 G/DL (3.4-5.0); ANION GAP 10 (8-16); BLOOD UREA NITROGEN 36 MG/DL (7-18); BUN/CREATININE RATIO 27.5 (6.6-38.0); CALCIUM 8.6 MG/DL (8.5-10.1); CHLORIDE 111 MMOL/L (99-107); CREATININE 1.31 MG/DL (0.40-0.90); GLUCOSE 92 MG/DL (70-104); MAGNESIUM 2.1 MG/DL (1.5-2.4); POTASSIUM 3.9 MMOL/L (3.5-5.1); SODIUM 141 MMOL/L (135-145); TOTAL CARBON DIOXIDE 19.6 MMOL/L (24-32); eGFR 39 ML/MIN
[2022-06-16] MEDS: K and/or MAG REPLACEMENT MC SCH ×2 (08:00→20:00)
[2022-06-16 08:06] LABS: BASOPHILS % (AUTO) 0.2 % (0-1); EOSINOPHILS # (AUTO) 0.1 X10'3 (0-0.9); EOSINOPHILS % (AUTO) 1.3 % (0-6); HEMATOCRIT 32.9 % (35.0-45.0); HEMOGLOBIN 10.8 g/dl (12.0-16.0); LYMPHOCYTES # (AUTO) 0.7 X10'3 (1.1-4.8); LYMPHOCYTES % (AUTO) 9.3 % (21-51); MEAN CORPUSCULAR HEMOGLOBIN 28.1 PG (27.0-31.0); MEAN CORPUSCULAR HGB CONC 32.7 g/dL (33.0-36.5); MEAN CORPUSCULAR VOLUME 85.8 FL (78-98); MEAN PLATELET VOLUME 8.4 FL (7.4-10.4); MONOCYTES # (AUTO) 0.5 X10'3 (0-0.9); MONOCYTES % (AUTO) 6.8 % (2-12); NEUTROPHILS # (AUTO) 6.6 X10'3 (1.8-7.7); NEUTROPHILS % (AUTO) 82.4 % (42-75); PLATELET COUNT 119 X10'3 (140-440); RED BLOOD COUNT 3.84 X10'6 (4.20-5.60); RED CELL DISTRIBUTION WIDTH 15.3 % (11.5-14.5)
[2022-06-16] MEDS: calcium carbonate/vitamin D3 tablet PO SCH ×2 (09:40→20:07)
[2022-06-16] MEDS: azithromycin 250mg tablet PO SCH (09:40)
[2022-06-16] MEDS: pantoprazole 40mg Tablet.DR PO SCH (09:40)
[2022-06-16] MEDS: docusate sod 100mg capsule PO SCH ×2 (09:40→20:03)
[2022-06-16] MEDS: gabapentin 100mg capsule PO SCH ×3 (09:40→20:02)
[2022-06-16] MEDS: CefTRIAXone 2gm/D5W 50ml BAG 50 ML IV SCH (09:40)
[2022-06-16] MEDS: enoxaparin 40mg/0.4ml syringe SUBCUT SCH (09:40)
[2022-06-16] MEDS: normal saline 1000ml 1,000 ML IV SCH ×2 (10:15→20:07)
[2022-06-16] MEDS: acetaminophen 325mg tablet PO PRN (13:00)
--- NOTE | 2022-06-16 13:32 | NUR ---
This RN was not supplied with a working computer with working medication scanner, All meds given per orders, via 5 rights.
[2022-06-16 15:02] LABS: HEMOGLOBIN A1C 6.2 % (4.5-6.2)
[2022-06-16] MEDS: traZODone 50mg tablet PO SCH (20:02)
[2022-06-16] MEDS: atorvastatin 20mg tablet PO SCH (20:02)
[2022-06-16] MEDS: oxybutynin 5mg tablet PO SCH (20:02)
[2022-06-17] VITALS (7 sets, daily range): BP systolic 118–171; BP diastolic 67–96
[2022-06-17] MEDS: normal saline 1000ml 1,000 ML IV SCH ×2 (02:25→06:44)
[2022-06-17 06:39] LABS: BASOPHILS % (AUTO) 0.2 % (0-1); EOSINOPHILS # (AUTO) 0.1 X10'3 (0-0.9); EOSINOPHILS % (AUTO) 1.6 % (0-6); HEMATOCRIT 32.4 % (35.0-45.0); HEMOGLOBIN 10.8 g/dl (12.0-16.0); LYMPHOCYTES # (AUTO) 0.9 X10'3 (1.1-4.8); LYMPHOCYTES % (AUTO) 11.8 % (21-51); MEAN CORPUSCULAR HEMOGLOBIN 28.1 PG (27.0-31.0); MEAN CORPUSCULAR HGB CONC 33.5 g/dL (33.0-36.5); MEAN PLATELET VOLUME 8.2 FL (7.4-10.4); MONOCYTES # (AUTO) 0.6 X10'3 (0-0.9); MONOCYTES % (AUTO) 8.3 % (2-12); NEUTROPHILS # (AUTO) 5.7 X10'3 (1.8-7.7); NEUTROPHILS % (AUTO) 78.1 % (42-75); PLATELET COUNT 118 X10'3 (140-440); RED BLOOD COUNT 3.86 X10'6 (4.20-5.60); RED CELL DISTRIBUTION WIDTH 14.9 % (11.5-14.5); WHITE BLOOD COUNT 7.3 X10'3 (4.5-11.0)
[2022-06-17 06:54] LABS: ALBUMIN 1.6 G/DL (3.4-5.0); ANION GAP 7 (8-16); BLOOD UREA NITROGEN 25 MG/DL (7-18); BUN/CREATININE RATIO 21.2 (6.6-38.0); CALCIUM 8.4 MG/DL (8.5-10.1); CHLORIDE 111 MMOL/L (99-107); CREATININE 1.18 MG/DL (0.40-0.90); GLUCOSE 90 MG/DL (70-104); MAGNESIUM 1.9 MG/DL (1.5-2.4); POTASSIUM 3.8 MMOL/L (3.5-5.1); SODIUM 139 MMOL/L (135-145); TOTAL CARBON DIOXIDE 21.2 MMOL/L (24-32); eGFR 45 ML/MIN
--- NOTE | 2022-06-17 07:51 | NUR ---
DM consult: Pt w/ hx of DM A1c 6.2 per EMR. Well controlled and appropriate, DM ed not indicated at this time. Pt admitted w/ sepsis secondary to PNA, and JEANIE per EMR. Currently on Heart Healthy diet w/ avg intake 54% x first 3 meals. Recommend liberalizing to Regular diet as pt has no cardiac hx in EMR. Also recommend Ensure Enlive BID to assist w/ meeting needs. LBM 06/15 receiving routine colace. Will continue to monitor. Recs: 1. Liberalize to REGULAR DIET, no cardiac hx in EMR 2. Ensure Enlive BIDBD; pending physician verification 3. Bowel care per rx 4. Scaled wts Addendum: 06/17/22 at [address] Amended: Links added.
[2022-06-17] MEDS: docusate sod 100mg capsule PO SCH ×2 (07:56→20:19)
[2022-06-17] MEDS: pantoprazole 40mg Tablet.DR PO SCH (07:56)
[2022-06-17] MEDS: calcium carbonate/vitamin D3 tablet PO SCH ×2 (07:56→17:15)
[2022-06-17] MEDS: azithromycin 250mg tablet PO SCH (07:57)
[2022-06-17] MEDS: enoxaparin 40mg/0.4ml syringe SUBCUT SCH (07:57)
[2022-06-17] MEDS: gabapentin 100mg capsule PO SCH ×3 (07:57→20:19)
[2022-06-17] MEDS: CefTRIAXone 2gm/D5W 50ml BAG 50 ML IV SCH (07:58)
[2022-06-17] MEDS: K and/or MAG REPLACEMENT MC SCH ×2 (08:00→20:00)
[2022-06-17] MEDS: acetaminophen 325mg tablet PO PRN ×2 (08:03→21:37)
[2022-06-17] MEDS: lactose-reduced food (Ensure Enlive) - 237ml bottle PO SCH (17:59)
[2022-06-17] MEDS: atorvastatin 20mg tablet PO SCH (20:19)
[2022-06-17] MEDS: traZODone 50mg tablet PO SCH (20:19)
[2022-06-17] MEDS: oxybutynin 5mg tablet PO SCH (20:19)
[2022-06-17] MEDS ORDERED: amLODIPine 2.5mg tablet PO ONE (20:50)
[2022-06-17] MEDS ORDERED: acetaminophen 325mg tablet PO PRN (21:05)
--- NOTE | 2022-06-17 22:33 | NUR ---
At 2024,patient's b/p was 171/91 with hr of 93.MD Packer was notified via phone with new order to give Norvasc 2.5mg po once and prn Tylenol 650mg 6hrly for headache.
[2022-06-18 02:00] VITALS: BP 120/63
[2022-06-18] MEDS: acetaminophen 325mg tablet PO PRN (04:07)
[2022-06-18 06:00] VITALS: BP 141/74
[2022-06-18] MEDS: lactose-reduced food (Ensure Enlive) - 237ml bottle PO SCH (07:30)
[2022-06-18 07:44] LABS: BASOPHILS % (AUTO) 0.3 % (0-1); EOSINOPHILS # (AUTO) 0.1 X10'3 (0-0.9); HEMATOCRIT 31.9 % (35.0-45.0); HEMOGLOBIN 10.8 g/dl (12.0-16.0); LYMPHOCYTES # (AUTO) 1.1 X10'3 (1.1-4.8); LYMPHOCYTES % (AUTO) 11.6 % (21-51); MEAN CORPUSCULAR HEMOGLOBIN 28.1 PG (27.0-31.0); MEAN CORPUSCULAR HGB CONC 33.8 g/dL (33.0-36.5); MEAN CORPUSCULAR VOLUME 83.2 FL (78-98); MEAN PLATELET VOLUME 8.2 FL (7.4-10.4); MONOCYTES # (AUTO) 0.9 X10'3 (0-0.9); MONOCYTES % (AUTO) 9.1 % (2-12); NEUTROPHILS # (AUTO) 7.4 X10'3 (1.8-7.7); PLATELET COUNT 145 X10'3 (140-440); RED BLOOD COUNT 3.84 X10'6 (4.20-5.60); RED CELL DISTRIBUTION WIDTH 15.1 % (11.5-14.5); WHITE BLOOD COUNT 9.4 X10'3 (4.5-11.0)
[2022-06-18] MEDS: K and/or MAG REPLACEMENT MC SCH (08:00)
[2022-06-18 08:09] LABS: LARGE PLATELETS FEW; PLATELET ESTIMATE NORMAL; TOTAL CELLS COUNTED 100
[2022-06-18 08:12] LABS: ALBUMIN 1.6 G/DL (3.4-5.0); ANION GAP 8 (8-16); BLOOD UREA NITROGEN 22 MG/DL (7-18); BUN/CREATININE RATIO 19.5 (6.6-38.0); CALCIUM 8.8 MG/DL (8.5-10.1); CHLORIDE 108 MMOL/L (99-107); CREATININE 1.13 MG/DL (0.40-0.90); GLUCOSE 104 MG/DL (70-104); MAGNESIUM 1.8 MG/DL (1.5-2.4); POTASSIUM 3.6 MMOL/L (3.5-5.1); SODIUM 140 MMOL/L (135-145); TOTAL CARBON DIOXIDE 23.9 MMOL/L (24-32); eGFR 47 ML/MIN
[2022-06-18] MEDS: pantoprazole 40mg Tablet.DR PO SCH (10:48)
[2022-06-18] MEDS: calcium carbonate/vitamin D3 tablet PO SCH (10:48)
[2022-06-18] MEDS: docusate sod 100mg capsule PO SCH (10:48)
[2022-06-18] MEDS: azithromycin 250mg tablet PO SCH (10:48)
[2022-06-18] MEDS: gabapentin 100mg capsule PO SCH (10:48)
[2022-06-18] MEDS: enoxaparin 40mg/0.4ml syringe SUBCUT SCH (10:49)
[2022-06-18] MEDS: CefTRIAXone 2gm/D5W 50ml BAG 50 ML IV SCH (10:49)
--- NOTE | 2022-06-18 17:33 | NUR ---
PT is aox4, vss on ra, and ambulatory with walker. 2 pers assist sit to stand. PIVs removed, abx given. pt sleeping through most of the day. pt given education on diagnosis and incentive spirometer for pulmonary hygiene. All needs met in real time. Grand daughter Rasta came to fern picker patient for home. HH PT to call pt for set up.
== END 2022-06-18 17:00 | disposition home health service (06) | DRG 871 ==
LOC: ER 03:49 → ED HOLD 14:27 → EDBEDREQ 06-15 00:39 → PCU 3S 06-15 23:56
PROVIDERS: ADMIT Family Medicine; ATTEND Family Medicine
DX: A41.9 Sepsis, unspecified organism (principal); J18.9 Pneumonia, unspecified organism; N17.0 Acute kidney failure with tubular necrosis; E86.0 Dehydration; Z20.822 Contact with and (suspected) exposure to COVID-19; I48.91 Unspecified atrial fibrillation; E78.5 Hyperlipidemia, unspecified; Z96.652 Presence of left artificial knee joint; E11.42 Type 2 diabetes mellitus with diabetic polyneuropathy; G89.29 Other chronic pain; K21.9 Gastro-esophageal reflux disease without esophagitis; M79.602 Pain in left arm; Z90.710 Acquired absence of both cervix and uterus; Z88.8 Allergy status to other drugs, medicaments and biological substances; Z87.891 Personal history of nicotine dependence; Z90.49 Acquired absence of other specified parts of digestive tract; Z79.899 Other long term (current) drug therapy
CPT/HCPCS: 36415; 71045; 71250; 80048; 80053; 82948; 83036; 83605; 83735; 83880; 84132; 84145; 84484; 85007; 85025; 85379; 87081; 87635; 93005; 96365; 97161; 97530; 99285; C9803; G0378; J0456; J0696; J1650; J7030; J7120

== ENCOUNTER 2025-05-23 15:38 | Outpatient (CLI) | payer MEDICARE, MEDICAID ==
[~2025-05-23 15:38] MED LIST changes: +ATOR20TA66 PO; +GABA-530 PO; -GABA-532 PO; -IBUP-1985 PO; +OXYB5TAB21 PO; +POLY1DRO2 OP; +TRAZ-251 PO
--- NOTE | 2025-05-23 16:43 | RADIOLOGY REPORT ---
CLINICAL HISTORY: OTHER AMNESIA TECHNIQUE: Routine multiplanar imaging of the brain was performed without gadolinium contrast. COMPARISON: None FINDINGS: There is no abnormal restricted diffusion to suggest acute infarction. There is moderate brain volume loss. There are scattered T2 hyperintense foci within the white matter of both cerebral hemispheres, which is most compatible with a mild burden of nonspecific chronic isc hemic changes. There is no evidence for acute ischemic changes, mass, mass effect, or extra-axial fluid collection. There is no hydrocephalus or midline shift. The cerebral sulci and subarachnoid cisterns are not effa cirsta. The imaged paranasal sinuses are clear. There has been bilateral cataract extraction. The midline str uctures, including the corpus callosum, are unremarkable. The intracranial flow voids are maintained. IMPRESSION: NO ACUTE INTRACRANIAL ABNORMALITY. NO EVIDENCE FOR ACUTE INFARCT. MODERATE BRAIN VOLUME LOSS. MILD CHRONIC ISCHEMIC CHANGE.
== END 2025-05-23 23:59 | disposition home or self-care (01) ==
LOC: MRI02 15:38
PROVIDERS: ATTEND Neuromusculoskeletal Medicine & OMM
DX: I67.89 Other cerebrovascular disease (principal); R41.3 Other amnesia
CPT/HCPCS: 70551